=== PATIENT | male | born 1995 | race Caucasian/White ===

== ENCOUNTER → 2017-02-20 | Outpatient (CLI) | payer BC ==
[~2017-02-20] MED LIST: CEPHALEXIN250 M1 PO; CEPHALEXIN250 MG/5 M PO; NO HOME MEDICATIONS
== END ==
LOC: COL.VAS 14:45
DX: R00.0 Tachycardia, unspecified (principal)

== ENCOUNTER 2023-12-17 14:00 | Outpatient (RCR) | payer OTHER | END 2024-01-11 | disposition home or self-care (01) | LOC: PT.GENESIS | DX: Z98.890 Other specified postprocedural states (principal) ==

== ENCOUNTER 2024-02-06 11:00 | Outpatient (RCR) | payer OTHER | END 2024-02-11 | disposition home or self-care (01) | LOC: PT.GENESIS | DX: Z98.890 Other specified postprocedural states (principal) ==